=== PATIENT | male | born 1970 | race Caucasian/White ===

== ENCOUNTER 2016-10-16 10:45 | Day surgery (SDC) | END 2016-10-16 13:39 | disposition EXP | DX: I46.9 Cardiac arrest, cause unspecified (principal); I49.01 Ventricular fibrillation; J96.00 Acute respiratory failure, unspecified whether with hypoxia or hypercapnia; I21.3 ST elevation (STEMI) myocardial infarction of unspecified site; E87.2 Acidosis; E87.0 Hyperosmolality and hypernatremia | CPT/HCPCS: 33967; 36600; 71010; 80053; 82803; 82962; 83605; 84484; 85025; 87040; 93005; 94002; 99291; C1725; C1726; C1757; C1769; C1874; C1887; C1894; C9606; J0171; J0583; J1644; J2001; J2250; J2370 ==